=== PATIENT | female | born 1970 | race Asian ===

== ENCOUNTER 2016-07-19 19:07 | Emergency (ER) | payer OTHER ==
[~2016-07-19] VITALS: Ht 157.5 cm; Wt 81.6 kg
[~2016-07-19 19:07] MED LIST: INSU100I2 SC; LISI5TAB10 PO; METF500T PO
[2016-07-19 19:47] LABS: PLATELET COUNT 272 K/uL (152-353)
[2016-07-19 19:56] LABS: POTASSIUM 3.9 mmol/L (3.6-5.2); SODIUM 129 mmol/L (136-145)
[2016-07-19 22:57] VITALS: BP 168/80; TEMP 98.8
== END 2016-07-19 22:58 | disposition home or self-care (01) ==
LOC: ED 19:07
DX: K29.70 Gastritis, unspecified, without bleeding (principal); B96.81 Helicobacter pylori [H. pylori] as the cause of diseases classified elsewhere; K85.90 Acute pancreatitis without necrosis or infection, unspecified; R16.0 Hepatomegaly, not elsewhere classified
CPT/HCPCS: 36415; 80053; 81000; 82150; 83036; 83690; 85027; 86318; 99283; Q9963

== ENCOUNTER 2017-03-12 13:12 | Outpatient (CLI) | payer OTHER ==
[2017-03-12] MEDS ORDERED: SIMV20TA2 PO (13:52)
[2017-03-12] MEDS ORDERED: CLOP75TA2 PO (13:52)
[2017-03-12] MEDS ORDERED: AMLO2.5T PO (13:53)
[2017-03-12] MEDS ORDERED: HYDR5TAB9 PO (13:54)
[2017-03-12] MEDS ORDERED: JANUVIA100 MG PO (13:55)
== END 2017-03-12 13:21 | disposition short-term general hospital (02) ==
LOC: AMB 13:12
DX: R11.2 Nausea with vomiting, unspecified (principal)
CPT/HCPCS: A0425; A0427

== ENCOUNTER 2017-03-12 13:21 | Emergency (ER) | payer OTHER ==
[~2017-03-12] VITALS: Ht 157.5 cm; Wt 71.2 kg
[2017-03-12] MEDS ORDERED: SIMV20TA2 PO (13:52)
[2017-03-12] MEDS ORDERED: CLOP75TA2 PO (13:52)
[2017-03-12] MEDS ORDERED: AMLO2.5T PO (13:53)
[2017-03-12] MEDS ORDERED: HYDR5TAB9 PO (13:54)
[2017-03-12] MEDS ORDERED: JANUVIA100 MG PO (13:55)
[2017-03-12 14:10] LABS: PLATELET COUNT 354 K/uL (152-353)
[2017-03-12 15:02] LABS: SODIUM 128 mmol/L (136-145)
[2017-03-12 22:20] VITALS: BP 181/73; TEMP 98.8
== END 2017-03-12 22:21 | disposition home or self-care (01) ==
LOC: ED 13:21
PROVIDERS: Family Medicine
DX: K21.9 Gastro-esophageal reflux disease without esophagitis (principal); R10.9 Unspecified abdominal pain; R11.2 Nausea with vomiting, unspecified
CPT/HCPCS: 36415; 80053; 81000; 82150; 82550; 83690; 84484; 85027; 93005; 96360; 96372; 96375; 99284; J1885; J2405; J2550; J2780

== ENCOUNTER 2017-06-18 08:30 | Outpatient (CLI) | payer OTHER ==
[~2017-06-18 08:30] MED LIST changes: +AMLO2.5T PO; +CLOP75TA2 PO; +HYDR5TAB9 PO; +JANUVIA100 MG PO; +SIMV20TA2 PO
== END 2017-06-18 09:51 | disposition short-term general hospital (02) ==
LOC: AMB 08:30
DX: I99.8 Other disorder of circulatory system (principal); E11.65 Type 2 diabetes mellitus with hyperglycemia
CPT/HCPCS: A0425; A0427

== ENCOUNTER 2017-12-05 13:12 | Emergency (ER) | payer OTHER ==
[~2017-12-05] VITALS: Ht 157.5 cm; Wt 59.0 kg
[2017-12-05 13:20] VITALS: BP 156/78; TEMP 97.3
[2017-12-05 14:44] LABS: PLATELET COUNT 529 K/uL (152-353)
[2017-12-05 14:49] LABS: POTASSIUM 3.6 mmol/L (3.6-5.2)
== END 2017-12-05 15:23 | disposition home or self-care (01) ==
LOC: ED 13:12
DX: E11.40 Type 2 diabetes mellitus with diabetic neuropathy, unspecified (principal)
CPT/HCPCS: 36415; 80053; 81000; 83880; 85027; 96372; 99283; J1885

== ENCOUNTER 2019-05-29 14:40 | Inpatient (IN) | payer OTHER ==
[~2019-05-29] VITALS: Ht 157.5 cm; Wt 86.3 kg
[2019-05-29 14:55] VITALS: BP 180/98; TEMP 98.25
[2019-05-29 15:24] LABS: PLATELET COUNT 286 K/uL (152-353)
[2019-05-29 15:30] LABS: SODIUM 139 mmol/L (136-145)
[2019-05-29 15:40] LABS: PARTIAL THROMBOPLASTIN TIME 25.4 SECONDS (24.5-33.6)
[2019-05-29 19:39] VITALS: BP 171/73; TEMP 98.2; Ht 157.5 cm; Wt 86.3 kg
[2019-05-29 19:53] VITALS: BP 171/73; TEMP 98.2
[2019-05-30] VITALS: BP 180/66; TEMP 98.1
--- NOTE | 2019-05-30 00:19 | NUR ---
PT HAS WOUND ON LEFT GROIN IN CREASE OF LEG, WOOUND IS OPEN AND HAS YELLOW DRAINAGE
[2019-05-30 04:00] VITALS: BP 146/58; TEMP 98.2
[2019-05-30 08:00] VITALS: BP 130/69; TEMP 98.7
--- NOTE | 2019-05-30 10:29 | NUR ---
PT REPORTS "SHARP" INTERMITTENT CHEST PAIN. VS WITHIN NORMAL LIMITS. NITRO PASTE NOTED TO R CHEST WALL. CARDIAC ENZYMES WNL. DR ESCOTO NOTIFIED. ORDERS REC'D FOR GI COCKTAIL NOW X 1 DOSE.
[2019-05-30 12:00] VITALS: BP 130/57; TEMP 98.5
[2019-05-30] MEDS ORDERED: GABA400C2 PO (14:10)
[2019-05-30] MEDS ORDERED: LISI10TA11 PO (14:10)
[2019-05-30] MEDS ORDERED: LANTUS100 UNIT/M SC (14:20)
[2019-05-30 16:00] VITALS: BP 124/55; TEMP 98.4
[2019-05-30 20:00] VITALS: BP 119/60; TEMP 98.3
[2019-05-31] VITALS (7 sets, daily range): BP systolic 116–157; BP diastolic 54–71; TEMP 98.4–99.1
--- NOTE | 2019-05-31 03:30 | NUR ---
IV SITE TO L AC INFILTRATED, UNABLE TO FLUSH OR GET RETURN. IV DISCONTINUED AT THIS TIME.
--- NOTE | 2019-05-31 04:15 | NUR ---
IV SITE OBTAINED TO R UPPER FOREARM WITH A 22 G CATHETAR X 3 ATTEMPTS, PT TOLERATED PROCEDURE WELL, SITE FLUSHED WITH 10 CC SALINE AND SALINE LOCKED.
--- NOTE | 2019-05-31 05:11 | NUR ---
ABCESS TO PUBIC AREA NOTED WITHOUT DRAINAGE AT THIS TIME.
[2019-05-31 13:40] LABS: PLATELET COUNT 239 K/uL (152-353)
[2019-05-31 13:49] LABS: POTASSIUM 4.3 mmol/L (3.6-5.2)
[2019-05-31 13:50] LABS: PARTIAL THROMBOPLASTIN TIME 25.2 SECONDS (24.5-33.6)
[2019-06-01 04:00] VITALS: BP 124/60; TEMP 98.8
[2019-06-01 08:00] VITALS: BP 127/58; TEMP 97.8
--- NOTE | 2019-06-01 08:00 | NUR ---
PT LYING IN BED WITH EYES OPENED. N C/O OF PAIN OR DISCOMFORT VOICED. TELE IS ON AND BEING MONITORED AT NURSES STATION. IV SITE WAS FLUSHED AND PATENT. NO ACUTE DISTRESS NOTED. PT IS WATCHING TV. CALL LIGHT WITHIN REACH. WILL CONT TO MONITOR.
--- NOTE | 2019-06-01 10:09 | NUR ---
1005 SPOKE WITH NASREEN CASILLAS RN AT [facility] CONCERNING TRANSFER OF PT TO DR MENDEZ SERVICES. INFORMED BY GUERA THAT SHE DID NOT HAVE A BED AT THIS TIME. SHE STATED THAT SHE ANTICIPATED A BED THIS EVENING. SHE STATED THE PT WAS DOWN FOR CATH TOMORROW. SHE WOULD STAY IN TOUCH WITH ME. DR DIGGS NFORMED ALONG WITH PT.
[2019-06-01 12:00] VITALS: BP 125/54; TEMP 97.5
--- NOTE | 2019-06-01 12:38 | NUR ---
PT RESTING IN BED WITH EYES OPENED AND WATCHING TV. PT DENIES ANY PAIN OR DISCOMFORT AT THIS KVNG. TELE IS ON AND BEING MONITORED AT NURSES STATION. CALL LIGHT WITHIN REACH. WILL CONT TO MONITOR.
--- NOTE | 2019-06-01 15:18 | NUR ---
Pharmacy was called with the results of vanc trough (20.8) Pharmacist Charlotte Linn instructed this nurse to hold the 1500 dose of Vanc, and she would call back with further instructions on Vanc. order.
[2019-06-01 16:00] VITALS: BP 123/54; TEMP 98.8
--- NOTE | 2019-06-01 16:03 | NUR ---
DR DIGGS MADE ROUNDS AND SEEN PT. NEW ORDERS RECEIVED FOR DISCHARGE TO HOME.
--- NOTE | 2019-06-01 16:32 | NUR ---
PT VOICED C/O CHEST PAIN THAT LASTED APPROX. 5 MINUTES AND SHE RATED THE PAIN [address] DIGGS WAS NOTIFIED AND NEW ORDER WAS RECEIVED FOR STAT EKG. THIS NURSE WAS ALSO INSTRUCTED TO CALL [facility] TO INQUIRE ABOUT BED AVAILABLITY FOR PT, AND TO INFORM [facility] THAT PT IS NOW HAVING CHEST PAIN. [facility] INFORMED NURSE BETHEL QUINONEZ RN THAT THEY STILL DID NOT HAVE A BED AVAILABLE, AND THAT DR MENDEZ NEEDED TO BE CONTACTED. DR DIGGS WAS INFORMED OF THIS INFORMATION AND IS NOW ATTEMPTING TO CONTACT DR MENDEZ ABOUT PT'S CONDITION. VS 98.8, 67, 14, 123/54, 97% ON ROOM AIR. PT IS ON TELE AND BEING MONITORED AT NURSES STATION. NO ACUTE DISTRESS NOTED, AND CALL LIGHT IS WITHIN REACH. WILL CONT TO MONITOR.
--- NOTE | 2019-06-01 16:59 | NUR ---
2759 DR MENDEZ CONTACTED VIA PHONE PER DR DIGGS. PER DR MENDEZ "PLANS ARE TO TRANSFER PT TOMORROW FOR A CARDIAC CATH ON THURSDAY" PER DR DIGGS PER DR MENDEZ. PT DENIES CHEST PAIN AT THIS TIME. VS STABLE. PT INFORMED PER MD WILL CON'T TO MONITOR.
--- NOTE | 2019-06-01 17:23 | NUR ---
1724 GUERA CASILLAS RN FROM [facility] CALLED AND STATED SHE SHOULD HAVE A BED IN ABOUT AN HR. DR DIGGS INFORMED AND PT INFORMED WILL NOTIFY EMS AT THIS TIME.
--- NOTE | 2019-06-01 17:33 | NUR ---
PT WAS INFORMED THAT A BED HAS BECAME AVAILABLE AT [facility], AND WE ARE AWAITING ROOM ASSIGNMENT AT THIS TIME. PT SITTING UP IN W/C IN ROOM. NO C/O PAIN OR DISCOMFORT VOICED AT THIS TIME. PT REQUESTED A FRESH CUP OF ICE WATER AND ONE WAS CARRIED TO HER. NO ACUTE DISTRESS NOTED. CALL LIGHT IS WITHIN REACH. WILL CONT TO MONITOR.
--- NOTE | 2019-06-01 18:31 | NUR ---
PT SITTING UP IN W/C IN ROOM. NO C/O OF PAIN OR DISCOMFORT VOICED. TELE IS ON AND BEING MONITORED AT NURSES STATION. NO ACUTE DISTRESS NOTED AND CALL LIGHT WITHIN REACH. WILL CONT TO MONITOR
--- NOTE | 2019-06-01 18:35 | NUR ---
1835 NASREEN CASILLAS RN CALLED BACK FROM [facility] WITH BED ASSIGNMENT. PT WILL GO TO PCU BED 240. EMS NOTIFIED OF TRANSFER. WILL CALL REPORT.
--- NOTE | 2019-06-01 18:52 | NUR ---
CALLED AND GAVE REPORT ON PT TO [facility], NURSE ORALIA METZGER. TRAMSPORT NOTIFIED.
--- NOTE | 2019-06-01 19:09 | NUR ---
PT PICKED UP BY TRANSPORT AND LEFT FACILITY VIA STRETCHER TO BE TRANSFERED TO [facility]. NO ACUTE DISTRESS NOTED IN PT. PT'S W/C WAS CARRIED WITH TRANSPORT ALSO.
--- NOTE | 2019-06-01 19:19 | NUR ---
1920 PT LEFT VIA STRETCHER WITH EMS. NO DISTRESS NOTED. PT DENIES ANY CHEST PAIN ON ADMISSION
== END 2019-06-01 19:06 | disposition short-term general hospital (02) | DRG 311 ==
LOC: ED 14:40 → MED/SURG 16:00
PROVIDERS: Internal Medicine; ADMIT Hospitalist
DX: I24.9 Acute ischemic heart disease, unspecified (principal); R07.89 Other chest pain; I25.10 Atherosclerotic heart disease of native coronary artery without angina pectoris; I25.2 Old myocardial infarction; E11.42 Type 2 diabetes mellitus with diabetic polyneuropathy; Z79.4 Long term (current) use of insulin; Z89.612 Acquired absence of left leg above knee; N39.0 Urinary tract infection, site not specified; B96.1 Klebsiella pneumoniae [K. pneumoniae] as the cause of diseases classified elsewhere; L02.211 Cutaneous abscess of abdominal wall
CPT/HCPCS: 36415; 80048; 80053; 80202; 81000; 82550; 83880; 84484; 85027; 85610; 85730; 87040; 87077; 87086; 87088; 87186; 93005; 93306; 99284; J1650; J1815; J3370

== ENCOUNTER 2019-06-01 19:22 | Outpatient (CLI) | payer OTHER ==
[~2019-06-01 19:22] MED LIST changes: +GABA400C2 PO; +LANTUS100 UNIT/M SC; +LISI10TA11 PO
== END 2019-06-01 19:51 | disposition short-term general hospital (02) ==
LOC: AMB 19:22
DX: R07.9 Chest pain, unspecified (principal)
CPT/HCPCS: A0425; A0427

== ENCOUNTER 2019-07-26 09:32 | Outpatient (CLI) | payer OTHER ==
[~2019-07-26] VITALS: Ht 157.5 cm; Wt 88.9 kg
== END 2019-07-26 22:20 | disposition home or self-care (01) ==
LOC: NM 09:32
DX: I25.10 Atherosclerotic heart disease of native coronary artery without angina pectoris (principal)
CPT/HCPCS: A9500; J2785

== ENCOUNTER 2019-09-02 12:28 | Emergency (ER) | payer OTHER ==
[~2019-09-02] VITALS: Ht 157.5 cm; Wt 88.9 kg
[2019-09-02 13:13] LABS: PLATELET COUNT 307 K/uL (152-353)
[2019-09-02 13:38] LABS: PARTIAL THROMBOPLASTIN TIME 21.9 SECONDS (24.5-33.6)
[2019-09-02 15:10] VITALS: BP 168/73; TEMP 98.3
== END 2019-09-02 15:11 | disposition home or self-care (01) ==
LOC: ED 12:28
PROVIDERS: Family Medicine
DX: R60.0 Localized edema (principal); E11.65 Type 2 diabetes mellitus with hyperglycemia
CPT/HCPCS: 36415; 80053; 81000; 83880; 85027; 85610; 85730; 96372; 99283; J1815

== ENCOUNTER 2020-05-02 00:02 | Emergency (ER) | payer OTHER ==
[~2020-05-02] VITALS: Ht 157.5 cm; Wt 78.0 kg
[2020-05-02 01:14] LABS: POTASSIUM 4.6 mmol/L (3.6-5.2)
[2020-05-02 01:20] LABS: PLATELET COUNT 313 K/uL (152-353)
[2020-05-02 02:40] VITALS: BP 161/85; TEMP 98.7
== END 2020-05-02 02:40 | disposition home or self-care (01) ==
LOC: ED 00:02
PROVIDERS: Family Medicine
DX: J06.9 Acute upper respiratory infection, unspecified (principal); R05 Cough; Z20.828 Contact with and (suspected) exposure to other viral communicable diseases
CPT/HCPCS: 36415; 80053; 82728; 85027; 87635; 93005; 99283; U0003

== ENCOUNTER 2020-09-12 19:16 | Emergency (ER) | payer OTHER ==
[~2020-09-12] VITALS: Ht 157.5 cm; Wt 81.6 kg
[2020-09-12 20:28] LABS: PLATELET COUNT 257 K/uL (152-353)
[2020-09-12 20:47] LABS: POTASSIUM 6.2 mmol/L (3.6-5.2)
[2020-09-12 21:30] VITALS: BP 179/77; TEMP 99.2
== END 2020-09-12 21:30 | disposition home or self-care (01) ==
LOC: ED 19:16
PROVIDERS: Family Medicine
DX: N19 Unspecified kidney failure (principal); R60.0 Localized edema
CPT/HCPCS: 36415; 80053; 81000; 83880; 85027; 99283; J1940

== ENCOUNTER 2020-09-15 14:26 | Emergency (ER) | payer OTHER ==
[~2020-09-15] VITALS: Ht 157.5 cm; Wt 81.6 kg
[2020-09-15 14:36] VITALS: TEMP 97
[2020-09-15 15:02] LABS: PLATELET COUNT 253 K/uL (152-353)
[2020-09-15 15:29] LABS: PARTIAL THROMBOPLASTIN TIME 25.1 SECONDS (24.5-33.6)
[2020-09-15 15:34] LABS: SODIUM 136 mmol/L (136-145)
[2020-09-15 15:37] LABS: POTASSIUM 7.5 mmol/L (3.6-5.2)
[2020-09-15 17:00] VITALS: BP 118/52
== END 2020-09-15 18:52 | disposition short-term general hospital (02) ==
LOC: ED 14:26
PROVIDERS: Family Medicine
DX: N19 Unspecified kidney failure (principal); R79.89 Other specified abnormal findings of blood chemistry; Z11.52 Encounter for screening for COVID-19
CPT/HCPCS: 80053; 82550; 82948; 83880; 84484; 85027; 85379; 85610; 85730; 87635; 93005; 94664; 96374; 96375; 99284; J1815; J2930; J7060; U0003

== ENCOUNTER 2020-11-15 14:16 | Outpatient (CLI) | payer OTHER ==
[2020-11-15 14:46] LABS: PLATELET COUNT 336 K/uL (152-353)
[2020-11-15 15:49] LABS: POTASSIUM 5.3 mmol/L (3.6-5.2)
== END 2020-11-15 22:00 | disposition home or self-care (01) ==
LOC: LABW 14:16
PROVIDERS: ATTEND Internal Medicine
DX: R53.83 Other fatigue (principal); N18.5 Chronic kidney disease, stage 5; E11.22 Type 2 diabetes mellitus with diabetic chronic kidney disease; E53.8 Deficiency of other specified B group vitamins
CPT/HCPCS: 36415; 80053; 81000; 82043; 82330; 82570; 82607; 82728; 82746; 83036; 83540; 83550; 83735; 83970; 84100; 84155; 84439; 84443; 85027; 85652; 86038

== ENCOUNTER 2020-12-18 08:34 | Outpatient (CLI) | payer OTHER ==
[2020-12-25 14:55] LABS: POTASSIUM 5.6 mmol/L (3.6-5.2)
== END 2020-12-18 17:00 | disposition home or self-care (01) ==
LOC: LABW 08:34
PROVIDERS: ATTEND Ophthalmology
DX: Z01.812 Encounter for preprocedural laboratory examination (principal)
CPT/HCPCS: 36415; 80048

== ENCOUNTER 2020-12-30 20:16 | Observation (INO) | payer OTHER ==
[~2020-12-30] VITALS: Ht 157.5 cm; Wt 92.6 kg
[2020-12-30 20:30] VITALS: BP 178/78; TEMP 98.9
[2020-12-30 21:30] LABS: PLATELET COUNT 319 K/uL (152-353)
[2020-12-30 21:45] VITALS: BP 169/82
[2020-12-30 21:49] LABS: SODIUM 135 mmol/L (136-145)
[2020-12-30 22:07] LABS: POTASSIUM 6.1 mmol/L (3.6-5.2)
[2020-12-30 22:13] LABS: PARTIAL THROMBOPLASTIN TIME 24.5 SECONDS (24.5-33.6)
[2020-12-30 22:15] VITALS: BP 161/79
[2020-12-30 22:45] VITALS: BP 184/78
[2020-12-30 23:15] VITALS: BP 174/72
[2020-12-31 01:32] VITALS: BP 149/76; TEMP 98.6; Ht 157.5 cm; Wt 92.6 kg
[2020-12-31 04:00] VITALS: BP 124/55; TEMP 98.5
[2020-12-31] MEDS ORDERED: VITAMIN DE1000 MCG/M IM (04:59)
[2020-12-31] MEDS ORDERED: PANTOPRAZOLE 40MG TA PO (05:01)
[2020-12-31] MEDS ORDERED: SODI650T PO (05:02)
[2020-12-31] MEDS ORDERED: LIPITOR80 MG PO (05:04)
[2020-12-31] MEDS ORDERED: AMLODIPINE BESYLATE PO (05:08)
[2020-12-31] MEDS ORDERED: CALCITRIOL0.5 MCG PO (05:10)
[2020-12-31] MEDS ORDERED: FERROUS SULF325 M1 PO (05:15)
[2020-12-31] MEDS ORDERED: ASA LOW DOSE81 MG PO (05:16)
[2020-12-31 08:00] VITALS: BP 151/75; TEMP 98.9
[2020-12-31 11:25] LABS: POTASSIUM 5.4 mmol/L (3.6-5.2)
[2020-12-31 12:00] VITALS: BP 129/56; TEMP 98.3
[2020-12-31 16:00] VITALS: BP 131/56; TEMP 98.6
== END 2020-12-31 17:30 | disposition home or self-care (01) ==
LOC: ED 20:16 → MED/SURG 22:20
PROVIDERS: ADMIT Hospitalist; ATTEND Internal Medicine
DX: R07.89 Other chest pain (principal); E87.5 Hyperkalemia; D64.89 Other specified anemias; K21.9 Gastro-esophageal reflux disease without esophagitis; E11.42 Type 2 diabetes mellitus with diabetic polyneuropathy; I25.10 Atherosclerotic heart disease of native coronary artery without angina pectoris; Z89.612 Acquired absence of left leg above knee; R06.02 Shortness of breath; I12.0 Hypertensive chronic kidney disease with stage 5 chronic kidney disease or end stage renal disease; E11.22 Type 2 diabetes mellitus with diabetic chronic kidney disease; N18.6 End stage renal disease
CPT/HCPCS: 36415; 80048; 80053; 81000; 82550; 83880; 84484; 85027; 85610; 85730; 87635; 93005; 96374; 99220; 99284; G0378; J1650; J1815; J1940; U0003

== ENCOUNTER 2021-04-28 19:27 | Inpatient (IN) | payer OTHER ==
[~2021-04-28] VITALS: Ht 157.5 cm; Wt 91.6 kg
[2021-04-28 19:27] VITALS: BP 149/72; TEMP 98.9
[~2021-04-28 19:27] MED LIST changes: +AMLODIPINE BESYLATE PO; +ASA LOW DOSE81 MG PO; +CALCITRIOL0.5 MCG PO; +FERROUS SULF325 M1 PO; +LIPITOR80 MG PO; +PANTOPRAZOLE 40MG TA PO; +SODI650T PO; +VITAMIN DE1000 MCG/M IM
[2021-04-28 20:30] VITALS: BP 155/67
[2021-04-28 21:00] VITALS: BP 162/75; TEMP 98.9
[2021-04-28 21:14] LABS: PLATELET COUNT 355 K/uL (152-353)
[2021-04-28 21:29] LABS: POTASSIUM 6.2 mmol/L (3.6-5.2)
[2021-04-28 21:36] LABS: PARTIAL THROMBOPLASTIN TIME 24.7 SECONDS (24.5-33.6)
--- NOTE | 2021-04-28 21:49 | NUR ---
PT WAS ADMITTED FROM ER. PT WAS TRANSFERRED TO MED SURG ROOM VIA WHEELCHAIR. PT IS BEING ADMITTED WITH END STAGE KIDNEY DISEASE. ELEVATED BUN AND ELEVATED BNP. PT TESTED NEGATIVE FOR COVID. PT WAS POSITIONED IN BED. BSC PLACED IN EASY REACH. BEDSIDE TABLE IN EASY REACH. ASSESSMENT ADMISSION BEING COMPLETED.
[2021-04-28] MEDS ORDERED: ZESTRIL40 MG (23:07)
[2021-04-28] MEDS ORDERED: FUROSEMIDE40 MG PO (23:08)
[2021-04-28] MEDS ORDERED: FERROUS SULF325 M1 PO (23:11)
[2021-04-28] MEDS ORDERED: B-12 COMPL1000 MCG/M INJ (23:13)
[2021-04-28] MEDS ORDERED: AMLODIPINE BESYLATE PO (23:16)
[2021-04-28] MEDS ORDERED: PANTOPRAZOLE 40MG TA PO (23:17)
[2021-04-28] MEDS ORDERED: CLOPIDOGREL75 MG PO (23:18)
[2021-04-28] MEDS ORDERED: SODI650T PO (23:19)
[2021-04-28 23:40] VITALS: BP 160/79; TEMP 98.6; Ht 157.5 cm; Wt 91.6 kg
[2021-04-29 03:37] VITALS: BP 140/56; TEMP 99.1
--- NOTE | 2021-04-29 05:29 | NUR ---
PT WAS UOB TO [facility] AND VOIDED 200 ML OF CLEAR YELLOW URINE. PT'S URINE WAS COLLECTED EARLIER AND SPECIMAN SENT TO LAB.
[2021-04-29 08:00] VITALS: BP 108/72; TEMP 98.4
[2021-04-29 10:20] LABS: POTASSIUM 5.9 mmol/L (3.6-5.2)
[2021-04-29 12:00] VITALS: BP 138/58; TEMP 98.9
--- NOTE | 2021-04-29 13:43 | NUR ---
04/29/21 1335 PT LYING IN BED TALKING ON PHONE TO FAMILY ASKED IF I WOULD CHECK TO SEE IF SHE IS GOING HOME TODAY.TOLD HER I WILL CHECK WITH .CALL LIGHT WITHIN REACH.CC
[2021-04-29 15:27] VITALS: BP 101/62; TEMP 98.1
[2021-04-29 17:47] LABS: POTASSIUM 5.7 mmol/L (3.6-5.2)
--- NOTE | 2021-04-29 18:03 | NUR ---
NOTIFIED BY NABEEL IN LAB OF CRITICAL LAB OF CREATININE 5.5 @ [address] NOTIFIED DR VALENCIA AT 1759 OF CRITICAL LAB VALUES. PTS NURSE JOSH GRIFFIN ALSO NOTIFIED OF CRITICAL LAB VALUES AT 1802.
[2021-04-29 20:00] VITALS: BP 148/59; TEMP 98.6
[2021-04-30] VITALS: BP 147/67; TEMP 98.6
[2021-04-30 04:00] VITALS: BP 151/72; TEMP 98.6
[2021-04-30 08:00] VITALS: BP 100/64; TEMP 98.1
[2021-04-30 08:40] LABS: POTASSIUM 4.9 mmol/L (3.6-5.2)
--- NOTE | 2021-04-30 08:45 | NUR ---
04/30/21 0825 RESTING IN BED PT STATES SHE HAD A GOOD NIGHT RESTED WELL.CALL LIGHT WITHIN REACH.CC
--- NOTE | 2021-04-30 11:01 | NUR ---
04/30/21 1030 NOTIFIED OF PT NOT FEELING WELL VS 99.1 89 94/48 80 93 PERCENT OXYGEN ON ROOM AIR.PT WEAK NOT EATING WELL.ALSO PT TINO STATED HE DOESNOT WANT TO GET UP AND PARTICPATE IN ACTIVITES IN MORNING. NEW ORDERS FO LABS AND CHEST EXRAY.CC
--- NOTE | 2021-04-30 14:17 | NUR ---
04/30/21 1410 PT DISCHARGED WITH INSTRUCTIONS GIVEN AND SIGNED.FOLLOW UP APPT MADE WITH NEPROLOGIST ON JUN 11.HOME MEDICATIONS GIVEN TO PATIENT TO TAKE HOME.[facility]SALINE LOCK REMOVED APPLIED 2X2 SECURED WITH TAPE.ALSO TELE RETURNED TO [employer] DESK.CC
== END 2021-04-30 14:17 | disposition home or self-care (01) | DRG 641 ==
LOC: ED 20:22 → MED/SURG 21:00
PROVIDERS: ADMIT Hospitalist; ATTEND Internal Medicine Endocrinology, Diabetes & Metabolism
DX: E87.5 Hyperkalemia (principal); I12.0 Hypertensive chronic kidney disease with stage 5 chronic kidney disease or end stage renal disease; N18.5 Chronic kidney disease, stage 5; J06.9 Acute upper respiratory infection, unspecified; E78.49 Other hyperlipidemia; I73.89 Other specified peripheral vascular diseases; E66.8 Other obesity; E11.22 Type 2 diabetes mellitus with diabetic chronic kidney disease; I25.10 Atherosclerotic heart disease of native coronary artery without angina pectoris; E11.42 Type 2 diabetes mellitus with diabetic polyneuropathy; K21.9 Gastro-esophageal reflux disease without esophagitis
CPT/HCPCS: 36415; 80048; 80053; 81000; 82550; 83880; 84484; 85027; 85610; 85730; 87635; 93005; 96374; 96375; 99284; J1650; J1815; J1885; J1940; J7060; U0003

== ENCOUNTER 2021-05-14 15:30 | Outpatient (CLI) | payer OTHER ==
[~2021-05-14 15:30] MED LIST changes: +B-12 COMPL1000 MCG/M INJ; +CLOPIDOGREL75 MG PO; +FUROSEMIDE40 MG PO; +ZESTRIL40 MG
[2021-05-14 16:14] LABS: POTASSIUM 5.6 mmol/L (3.6-5.2)
== END 2021-05-14 19:01 | disposition home or self-care (01) ==
LOC: LABW 15:30
PROVIDERS: ATTEND Nurse Practitioner
DX: E87.5 Hyperkalemia (principal); M79.604 Pain in right leg; R22.41 Localized swelling, mass and lump, right lower limb
CPT/HCPCS: 36415; 80053

== ENCOUNTER 2021-05-30 08:22 | Outpatient (CLI) | payer OTHER ==
[2021-05-30 08:54] LABS: PLATELET COUNT 291 K/uL (152-353)
[2021-05-30 09:03] LABS: POTASSIUM 5.4 mmol/L (3.6-5.2)
== END 2021-05-30 18:50 | disposition home or self-care (01) ==
LOC: LABW 08:22
PROVIDERS: ATTEND Nurse Practitioner
DX: N18.5 Chronic kidney disease, stage 5 (principal); N25.81 Secondary hyperparathyroidism of renal origin; E83.52 Hypercalcemia
CPT/HCPCS: 36415; 80053; 81000; 82330; 83735; 83970; 84100; 85027

== ENCOUNTER 2021-06-20 09:45 | Outpatient (CLI) | payer OTHER ==
[2021-06-20 10:27] LABS: PLATELET COUNT 355 K/uL (152-353)
[2021-06-20 10:38] LABS: POTASSIUM 5.9 mmol/L (3.6-5.2)
== END 2021-06-20 18:43 | disposition home or self-care (01) ==
LOC: LABW 09:45
PROVIDERS: ATTEND Nurse Practitioner
DX: R05.3 Chronic cough (principal); I25.10 Atherosclerotic heart disease of native coronary artery without angina pectoris; N18.5 Chronic kidney disease, stage 5; R06.02 Shortness of breath; I12.0 Hypertensive chronic kidney disease with stage 5 chronic kidney disease or end stage renal disease
CPT/HCPCS: 36415; 80053; 83880; 85027

== ENCOUNTER → 2021-07-09 | Emergency (ER) | payer OTHER | LOC: ED 09:00 | DX: N39.0 Urinary tract infection, site not specified (principal); N12 Tubulo-interstitial nephritis, not specified as acute or chronic | CPT/HCPCS: 99282 ==

== ENCOUNTER 2021-07-11 09:43 | Outpatient (CLI) | payer OTHER ==
[2021-07-11 10:29] LABS: PLATELET COUNT 274 K/uL (152-353)
== END 2021-07-11 19:01 | disposition home or self-care (01) ==
LOC: LAB 09:43
PROVIDERS: ATTEND Internal Medicine
DX: N18.5 Chronic kidney disease, stage 5 (principal); N25.81 Secondary hyperparathyroidism of renal origin; D50.8 Other iron deficiency anemias; E83.52 Hypercalcemia
CPT/HCPCS: 36415; 80053; 81000; 82330; 82607; 82728; 82746; 83540; 83550; 83735; 83970; 84100; 85027

== ENCOUNTER 2021-07-14 14:30 | Emergency (ER) | payer OTHER ==
[~2021-07-14] VITALS: Ht 157.5 cm; Wt 78.0 kg
[2021-07-14 14:40] VITALS: TEMP 97.8
[2021-07-14 15:21] LABS: PLATELET COUNT 350 K/uL (152-353)
[2021-07-14 15:51] LABS: POTASSIUM 6.9 mmol/L (3.6-5.2)
[2021-07-15 04:49] LABS: POTASSIUM 6.6 mmol/L (3.6-5.2)
[2021-07-15 08:32] VITALS: BP 131/71
== END 2021-07-15 09:12 | disposition short-term general hospital (02) ==
LOC: ED 14:30
PROVIDERS: Emergency Medicine Emergency Medical Services
DX: E87.5 Hyperkalemia (principal); N18.9 Chronic kidney disease, unspecified; U07.1 COVID-19
CPT/HCPCS: 36415; 80048; 80053; 84484; 85027; 87635; 96365; 96375; 99284; J0610; J1815; J3490; J7060; U0003

== ENCOUNTER 2021-09-07 13:03 | Emergency (ER) | payer OTHER ==
[~2021-09-07] VITALS: Ht 157.5 cm; Wt 89.4 kg
[2021-09-07 14:50] VITALS: BP 120/60; TEMP 100
== END 2021-09-07 14:52 | disposition home or self-care (01) ==
LOC: ED 13:03
DX: M72.2 Plantar fascial fibromatosis (principal)
CPT/HCPCS: 99282

== ENCOUNTER 2022-01-23 10:54 | Outpatient (CLI) | payer OTHER | END 2022-01-23 20:55 | disposition home or self-care (01) | LOC: LABW 10:54 | PROVIDERS: ATTEND Specialist | DX: N18.9 Chronic kidney disease, unspecified (principal); M79.602 Pain in left arm | CPT/HCPCS: 36415; 85379 ==

== ENCOUNTER 2022-01-29 08:31 | Outpatient (CLI) | payer OTHER | END 2022-01-29 19:21 | disposition home or self-care (01) | LOC: CT 08:31 | PROVIDERS: ATTEND Specialist | DX: R79.1 Abnormal coagulation profile (principal) | CPT/HCPCS: 36415; 82565; 84520 ==

== ENCOUNTER 2022-02-07 09:03 | Outpatient (CLI) | payer OTHER | END 2022-02-07 19:05 | disposition home or self-care (01) | LOC: NM 09:03 | PROVIDERS: ATTEND Specialist | DX: R79.1 Abnormal coagulation profile (principal) | CPT/HCPCS: A9540; A9567 ==

== ENCOUNTER 2022-03-01 12:36 | Emergency (ER) | payer OTHER ==
[~2022-03-01] VITALS: Ht 157.5 cm; Wt 83.0 kg
[2022-03-01 12:45] VITALS: TEMP 98.6
[2022-03-01 13:55] VITALS: BP 106/50
== END 2022-03-01 13:55 | disposition left against medical advice (07) ==
LOC: ED 12:36
DX: R51.9 Headache, unspecified (principal); R19.7 Diarrhea, unspecified; I95.89 Other hypotension; Z53.29 Procedure and treatment not carried out because of patient's decision for other reasons
CPT/HCPCS: 99281

== ENCOUNTER 2022-04-09 08:24 | Outpatient (CLI) | payer OTHER | END 2022-04-09 19:28 | disposition home or self-care (01) | LOC: MAMMO 08:24 | PROVIDERS: ATTEND Specialist | DX: R06.02 Shortness of breath (principal); N18.9 Chronic kidney disease, unspecified; E11.9 Type 2 diabetes mellitus without complications ==

== ENCOUNTER 2022-04-09 20:48 | Emergency (ER) | payer OTHER ==
[~2022-04-09] VITALS: Ht 157.5 cm; Wt 78.0 kg
[2022-04-09 23:56] VITALS: BP 142/72; TEMP 98.9
== END 2022-04-09 23:56 | disposition home or self-care (01) ==
LOC: ED 20:48
DX: K59.09 Other constipation (principal)
CPT/HCPCS: 81000; 82272; 99284

== ENCOUNTER 2022-06-18 13:35 | Outpatient (CLI) | payer OTHER | END 2022-06-18 19:00 | disposition home or self-care (01) | LOC: RAD 13:35 | PROVIDERS: ATTEND Internal Medicine | DX: M54.59 Other low back pain (principal); M25.552 Pain in left hip ==

== ENCOUNTER 2022-08-20 23:10 | Emergency (ER) | payer OTHER ==
[~2022-08-20] VITALS: Ht 157.5 cm; Wt 77.1 kg
[2022-08-20 23:10] VITALS: TEMP 97.9
[2022-08-21 00:35] LABS: POTASSIUM 3.2 mmol/L (3.6-5.2)
[2022-08-21 01:04] LABS: PLATELET COUNT 268 K/uL (152-353)
[2022-08-21 02:20] VITALS: BP 159/72
== END 2022-08-21 02:20 | disposition home or self-care (01) ==
LOC: ED 23:10
PROVIDERS: Emergency Medicine Emergency Medical Services
DX: R10.84 Generalized abdominal pain (principal); E87.6 Hypokalemia
CPT/HCPCS: 36415; 80053; 82150; 83690; 83735; 84484; 85027; 93005; 96361; 96374; 96375; 99284; J2270; J2405

== ENCOUNTER 2022-10-14 20:25 | Emergency (ER) | payer OTHER ==
[~2022-10-14] VITALS: Ht 157.5 cm; Wt 76.2 kg
[2022-10-14 23:20] VITALS: BP 113/62; TEMP 98.4
== END 2022-10-14 23:20 | disposition home or self-care (01) ==
LOC: ED 20:25
DX: K56.41 Fecal impaction (principal)
CPT/HCPCS: 99283